=== PATIENT | female | born 1995 | race Caucasian/White ===

== ENCOUNTER 2017-11-27 15:38 | Emergency (ER) | payer OTHER ==
[~2017-11-27] VITALS: Ht 149.9 cm; Wt 46.9 kg
[2017-11-27 16:08] VITALS: Ht 149.9 cm; Wt 46.9 kg
[2017-11-27 19:13] VITALS: BP 96/59
== END 2017-11-27 19:13 | disposition home or self-care (01) ==
LOC: ED 15:38
DX: B34.9 Viral infection, unspecified (principal)